=== PATIENT | male | born 1955 | race Caucasian/White ===

== ENCOUNTER 2020-01-15 10:40 | Emergency (ER) | payer OTHER, SELFPAY ==
[2020-01-15 10:56] VITALS: BP 141/84; PULSE 84; RESP 16; TEMP 36.6; O2SAT 99
--- NOTE | 2020-01-15 10:58 | ED.WOUNDLAC ---
HPI - Wound/Laceration General Chief Complaint: Wound/Laceration Stated Complaint: wound check History of Present Illness HPI narrative: This is a 65 year old male that has 6 stitches in his lips placed a week ago and would like to have removed. Related Data Home Medications Medication Instructions Recorded Confirmed Aspir-81 01/15/20 Vitamins 01/15/20 losartan 01/15/20 Allergies Allergy/AdvReac Type Severity Reaction Status Date / Time No Known Allergies Allergy Verified 05/28/15 20:37 Review of Systems Review of Systems: Narrative: CONSTITUTIONAL: Denies fever, chills, or sweats. EYES: Denies visual changes, redness, or discharge. ENT: Denies rhinorrhea, congestion, sore throat, or otalgia. CARDIOVASCULAR:Denies chest pain, palpitations, or edema. RESPIRATORY: Denies cough or dyspnea. GASTROINTESTINAL: Denies abdominal pain, nausea, vomiting, or diarrhea. GENITOURINARY: Denies dysuria or hematuria. SKIN:[Denies rash or itching. 6 suture on the upper lip on the right side MUSCULOSKELETAL:Denies back pain, joint pain, or myalgia. NEUROLOGIC: Denies headache, numbness, or weakness. PSYCHIATRIC:Denies anxiety or depression PMFSH Comments At time as signature, I have reviewed and agree with nursing past medical, social, surgical and family history. Please see nursing chart for further information. There is no relevant family history pertinent to the presenting complaint. Exam Narrative: Exam Narrative: GENERAL:Well-appearing, well-nourished, and in no acute distress. HEAD:Normocephalic, atraumatic. EYES: PERRLA and EOMI. ENT: Nares clear, no rhinorrhea or epistaxis. Mucous membranes moist. NECK: Supple. CHEST: Clear to auscultation. No respiratory distress. HEART: Regular rate and rhythm. No murmur heard. Normal peripheral pulses. ABDOMEN: Soft, nontender, nondistended, normal active bowel sounds. EXTREMITIES: Normal range of motion. No edema. SKIN: Warm, dry, no rash. 6 sutures removed to upper right side of lip. skin is pink and well approximated. NEURO: No focal deficits. Alert and oriented x3. Course Vital Signs Vital signs: Vital Signs Temperature 97.8 F 01/15/20 10:56 Pulse Rate 84 01/15/20 10:56 Respiratory Rate 16 01/15/20 10:56 Blood Pressure 141/84 H 01/15/20 10:56 Pulse Oximetry 99 01/15/20 10:56 Temperature 97.8 F 01/15/20 10:56 Pulse Rate 84 01/15/20 10:56 Respiratory Rate 16 01/15/20 10:56 Blood Pressure 141/84 H 01/15/20 10:56 Pulse Oximetry 99 01/15/20 10:56 Procedures Laceration Laceration 1: Date: 01/15/20 Time: 11:05 Site: lip (Upper lip) Side (If applicable): right ====== Skin Level ====== Number of sutures: 6 ====== Subcutaneous Layer ====== ====== Muscle Layer ====== ====== Tendon Layer ====== Dressin sutures removed from upper lip. Skin well approximated skin is pink and patient tolerated well. Discharge Plan Discharge Clinical Impression: Encounter for removal of sutures Patient Disposition: Home, Self-Care Condition: Stable Instructions: Antibiotic Form, Stitches Removal (ED) Additional Instructions: Thank you for coming make sure that you are still not apply to much pressure on the lips for a while. Prescriptions: No Action losartan 50 mg tablet RF: 0 Aspir-81 RF: 0 Vitamins RF: 0 Follow-up/Referrals: Khoa,Zaria Castañeda MD [Primary Care Provider] - Time of Disposition: 11:09
== END 2020-01-15 11:10 | disposition home or self-care (01) ==
PROVIDERS: Emergency Provider Nurse Practitioner Family; PCP Family Medicine
DX: S01.511D Laceration without foreign body of lip, subsequent encounter (principal); I10 Essential (primary) hypertension; X58.XXXD Exposure to other specified factors, subsequent encounter
CPT/HCPCS: 99211; G0463